=== PATIENT | male | born 1965 | race Caucasian/White ===

== ENCOUNTER 2017-07-22 15:15 | Emergency (ER) | payer OTHER ==
[2017-07-22] MEDS ORDERED: Sodium Chloride 0.9% 10 ML Syringe FLUSH PRN (15:31)
[2017-07-22] MEDS: Lactated Ringers 1,000 ML IV SCH ×2 (15:38→16:26)
[2017-07-22] MEDS: Ondansetron 4 MG/2 ML SDV IVPUSH ONE (15:39)
[2017-07-22 16:11] LABS: CHLORIDE,CL 100 mmol/L (98-107); SODIUM,NA 141 mmol/L (136-145)
--- NOTE | 2017-07-22 17:46 | EDM.PDOC ---
ED HPI GENERAL MEDICAL PROBLEM - General Chief Complaint: Gastrointestinal Problem Time Seen by Provider: 07/22/17 15:15 Source of Information: Reports: Patient History Limitations: Reports: No Limitations - History of Present Illness INITIAL COMMENTS - FREE TEXT/NARRATIVE: Pt. presents to ER with complaints of nausea and vomiting. No chest pain or shortness of breath. He states that it started approx. 24 hours prior to arriving in the ER. States that he started feeling ill yesterday. Denies any ill contacts. He states that he is not experiencing any fever or chills. No melena, hematochezia, or hemetemesis. Onset: Today Duration: Getting Worse Location: Reports: Abdomen Quality: Reports: Ache Severity: Severe Improves with: Reports: Rest Associated Symptoms: Reports: Nausea/Vomiting - Related Data Allergies Allergy/AdvReac Type Severity Reaction Status Date / Time No Known Allergies Allergy Verified 07/22/17 15:46 Home Meds: Home Meds Omeprazole 20 mg DAILY 07/22/17 [History] Venlafaxine HCl [Venlafaxine ER] 150 mg DAILY 07/22/17 [History] Past Medical History - Past Health History Medical/Surgical History: Denies Medical/Surgical History - Past Surgical History HEENT Surgical History: Reports: Adenoidectomy, Tonsillectomy GI Surgical History: Reports: Cholecystectomy Social & Family History - Tobacco Use Smoking Status *Q: Never Smoker - Recreational Drug Use Recreational Drug Use: No ED ROS GENERAL - Review of Systems Review Of Systems: See Below Constitutional: Reports: No Symptoms HEENT: Reports: No Symptoms Respiratory: Reports: No Symptoms Cardiovascular: Reports: No Symptoms Endocrine: Reports: No Symptoms GI/Abdominal: Reports: Nausea, Vomiting : Reports: No Symptoms Musculoskeletal: Reports: No Symptoms Skin: Reports: No Symptoms Neurological: Reports: No Symptoms Psychiatric: Reports: No Symptoms Hematologic/Lymphatic: Reports: No Symptoms Immunologic: Reports: No Symptoms ED EXAM, GENERAL - Physical Exam Exam: See Below Exam Limited By: No Limitations General Appearance: Alert, WD/WN, No Apparent Distress Eye Exam: Bilateral Eye: EOMI, Normal Fundi, Normal Inspection, PERRL Ears: Normal External Exam, Normal Canal, Hearing Grossly Normal, Normal TMs Ear Exam: Bilateral Ear: Auricle Normal, Canal Normal, TM normal Nose: Normal Inspection, Normal Mucosa, No Blood Throat/Mouth: Normal Inspection, Normal Lips, Normal Teeth, Normal Gums, Normal Oropharynx, Normal Voice, No Airway Compromise Head: Atraumatic, Normocephalic Neck: Normal Inspection, Supple, Non-Tender, Full Range of Motion Respiratory/Chest: No Respiratory Distress, Lungs Clear, Normal Breath Sounds, No Accessory Muscle Use, Chest Non-Tender Cardiovascular: Normal Peripheral Pulses, Regular Rate, Rhythm, No Edema, No Gallop, No JVD, No Murmur, No Rub Peripheral Pulses: 4+: Radial (L), Radial (R) GI/Abdominal: Soft, No Organomegaly, No Distention, No Mass, Tender. No: Guarding, Rigid, Rebound, Hepatomegaly, Splenomegaly (Male) Exam: Deferred Rectal (Males) Exam: Deferred Back Exam: Normal Inspection, Full Range of Motion, NT Extremities: Normal Inspection, Normal Range of Motion, Non-Tender, Normal Capillary Refill, No Pedal Edema Neurological: Alert, Oriented, CN II-XII Intact, Normal Cognition, Normal Gait, Normal Reflexes, No Motor/Sensory Deficits Psychiatric: Normal Affect, Normal Mood Skin Exam: Warm, Dry, Intact, Normal Color, No Rash Lymphatic: No Adenopathy Course - Vital Signs Last Recorded V/S: Last Vital Signs Temp 37.4 C 07/22/17 15:15 Pulse 91 07/22/17 15:15 Resp 16 07/22/17 15:15 BP 119/80 07/22/17 15:15 Pulse Ox 100 07/22/17 15:15 - Orders/Labs/Meds Orders: Active Orders 24 hr Category Date Time Status Lactated Ringers [Ringers, Lactated] 1,000 ml Med 07/22/17 15:45 Active IV ASDIRECTED Lactated Ringers [Ringers, Lactated] 1,000 ml Med 07/22/17 16:30 Active IV ASDIRECTED Sodium Chloride 0.9% [Saline Flush] Med 07/22/17 15:31 Active 10 ml FLUSH ASDIRECTED PRN Peripheral IV Insertion Adult [OM.PC] Routine Oth 07/22/17 15:32 Ordered Medication Orders Lactated Ringer's (Ringers, Lactated) 1,000 mls @ 500 mls/hr IV ASDIRECTED JAILENE Last Admin: 07/22/17 15:38 Dose: 500 mls/hr Lactated Ringer's (Ringers, Lactated) 1,000 mls @ 500 mls/hr IV ASDIRECTED JAILENE Last Admin: 07/22/17 16:26 Dose: 500 mls/hr Sodium Chloride (Saline Flush) 10 ml FLUSH ASDIRECTED PRN PRN Reason: Keep Vein Open Labs: Laboratory Tests 07/22/17 07/22/17 07/22/17 Range/Units 15:36 15:36 15:42 WBC 9.7 (4.0-10.0) x10^3/uL RBC 5.40 (4.5-6.0) x10^6/uL Hgb 16.6 (14.0-18.0) g/dL Hct 48.0 (40.0-52.0) % MCV 88.9 (78.0-93.0) fL MCH 30.7 (26.0-32.0) pg MCHC 34.6 (32.0-36.0) g/dL RDW Coeff of Saurav 13.4 (10.0-15.0) % Plt Count 357 (130-400) x10^3/uL Neut % (Auto) 73.7 (50.0-80.0) % Lymph % (Auto) 19.4 L (25.0-50.0) % Ray % (Auto) 6.5 (2.0-11.0) % Eos % (Auto) 0.1 (0.0-4.0) % Baso % (Auto) 0.3 (0.2-1.2) % POC Sodium 139 (138-146) mmol/L Sodium 141 (136-145) mmol/L POC Potassium 3.6 (3.5-4.9) mmol/L Potassium 3.7 (3.5-5.1) mmol/L POC Chloride 102 (98-109) mmol/L Chloride 100 (98-107) mmol/L Carbon Dioxide 20 L (21-32) mmol/L POC Total CO2 18 L (24-29) mmol/L Anion Gap 24.7 H (10-20) mmol/L POC Anion Gap 24 POC BUN 13 (8-26) mg/dL BUN 12 (7-18) mg/dL Creatinine 0.9 (0.70-1.30) mg/dL POC Creatinine 0.8 (0.6-1.3) mg/dL Est Cr Clr Drug Dosing 76.39 mL/min Estimated GFR (MDRD) > 60 Glucose 104 (70-105) mg/dL POC Glucose 104 (70-105) mg/dL Calcium 9.3 (8.5-10.1) mg/dL Corrected Calcium 8.90 (8.5-10.1) mg/dL Magnesium 1.9 (1.8-2.4) mg/dL Total Bilirubin 1.1 H (0.2-1.0) mg/dL AST 20 (15-37) U/L ALT 45 (16-63) U/L Alkaline Phosphatase 63 (46-116) U/L C-Reactive Protein 1.0 H (<=0.9) mg/dL Total Protein 8.1 (6.4-8.2) g/dL Albumin 4.5 (3.4-5.0) g/dL Globulin 3.6 Albumin/Globulin Ratio 1.25 Meds: Medications Generic Name Dose Route Start Last Admin Trade Name Freq PRN Reason Stop Dose Admin Lactated Ringer's 1,000 mls @ 500 mls/hr 07/22/17 15:45 07/22/17 15:38 Ringers, Lactated IV 500 mls/hr ASDIRECTED JAILENE Administration Lactated Ringer's 1,000 mls @ 500 mls/hr 07/22/17 16:30 07/22/17 16:26 Ringers, Lactated IV 500 mls/hr ASDIRECTED JAILENE Administration Sodium Chloride 10 ml 07/22/17 15:31 Saline Flush FLUSH ASDIRECTED PRN Keep Vein Open Discontinued Medications Generic Name Dose Route Start Last Admin Trade Name Freq PRN Reason Stop Dose Admin Ondansetron HCl 4 mg 07/22/17 15:32 07/22/17 15:39 Zofran IVPUSH 07/22/17 15:33 4 mg ONETIME ONE Administration Departure - Departure Time of Disposition: 17:29 Disposition: Home, Self-Care 01 Clinical Impression: Gastroenteritis - Discharge Information Instructions: Viral Gastroenteritis, Adult Referrals: PCP,Not In Area [Primary Care Provider] - Forms: ED Department Discharge Additional Instructions: Zofran 4mg ODT 1 every 8 hours as needed for vomiting. Stick clear with a liquid diet today (water, gatorade or powerade). Slowly advance your diet to include toast and crackers. Return to ER if you have any recurrence of your nausea/vomiting. - My Orders Last 24 Hours: My Active Orders 07/22/17 15:31 Sodium Chloride 0.9% [Saline Flush] 10 ml FLUSH ASDIRECTED PRN 07/22/17 15:32 Peripheral IV Insertion Adult [OM.PC] Routine 07/22/17 15:45 Lactated Ringers [Ringers, Lactated] 1,000 ml IV ASDIRECTED 07/22/17 16:30 Lactated Ringers [Ringers, Lactated] 1,000 ml IV ASDIRECTED - Assessment/Plan Last 24 Hours: My Active Orders 07/22/17 15:31 Sodium Chloride 0.9% [Saline Flush] 10 ml FLUSH ASDIRECTED PRN 07/22/17 15:32 Peripheral IV Insertion Adult [OM.PC] Routine 07/22/17 15:45 Lactated Ringers [Ringers, Lactated] 1,000 ml IV ASDIRECTED 07/22/17 16:30 Lactated Ringers [Ringers, Lactated] 1,000 ml IV ASDIRECTED
== END 2017-07-22 17:29 | disposition home or self-care (01) ==
LOC: VM.ED 15:15
DX: K52.9 Noninfective gastroenteritis and colitis, unspecified (principal); Z79.899 Other long term (current) drug therapy
CPT/HCPCS: 80047; 80053; 83735; 85025; 86140; 96360; 96361; 99284; J2405; J7120